=== PATIENT | male | born 1970 | race Caucasian/White ===

== ENCOUNTER 2021-12-04 12:31 | Outpatient (CLI) | payer OTHER, SELFPAY ==
[2021-12-04 13:39] LABS: Albumin* 4.6 g/dL (3.3-5.0); Chloride* 104 mmol/L (96-114); Sodium* 138 mmol/L (135-149)
[2021-12-04 13:40] LABS: Potassium* 4.5 mmol/L (3.6-5.1)
[2021-12-04 13:41] LABS: Cholesterol* 158 mg/dL (90-199)
[2021-12-04 13:42] LABS: Alanine Aminotransferase* 55 U/L (4-50); Alkaline Phosphatase* 81 U/L (40-150); Aspartate Amino Transferase* 49 U/L (12-35); Bilirubin Total* 0.8 mg/dL (0.1-1.5); Blood Urea Nitrogen* 25 mg/dL (7-30); Calcium* 9.1 mg/dL (8.4-10.6); Carbon Dioxide* 27 mmol/L (20-32); Creatinine* 1.1 mg/dL (0.5-1.5); Estimated Glomerular Filt Rate 81 ml/min; Glucose* 100 mg/dL (60-115); Total Protein* 6.9 g/dL (6.0-8.3); Triglycerides* 204 mg/dL (40-149)
[2021-12-04 13:43] LABS: HDL Cholesterol* 34 mg/dL (>=40); LDL Cholesterol Calculated 83 mg/dL (<100)
== END 2021-12-04 12:32 | disposition home or self-care (01) ==
PROVIDERS: PCP Family Medicine; Visit Provider Family Medicine
DX: Z00.00 Encounter for general adult medical examination without abnormal findings (principal); E03.9 Hypothyroidism, unspecified; E78.5 Hyperlipidemia, unspecified; F41.9 Anxiety disorder, unspecified
CPT/HCPCS: 80053; 80061; 84443

== ENCOUNTER 2021-12-07 07:49 | Outpatient (CLI) | payer OTHER, SELFPAY ==
[2021-12-08 22:49] LABS: Prostate Specific Antigen Free 0.2 ng/mL; Prostate Specific Antigen%Free 25 %; Prostate Specific AntigenTotal 0.8 ng/mL (0.0-4.0)
[2021-12-14 21:48] LABS: Sex Hormone Binding Globulin 13 nmol/L (19-76); Testosterone, Free LC-MS/MS 35.5 pg/mL (47.0-244.0); Testosterone, LC-MS/MS 140 ng/dL (300-890)
== END 2021-12-07 07:50 | disposition home or self-care (01) ==
PROVIDERS: PCP Family Medicine; Visit Provider Family Medicine
DX: N52.9 Male erectile dysfunction, unspecified (principal); R79.89 Other specified abnormal findings of blood chemistry; E78.5 Hyperlipidemia, unspecified; E03.9 Hypothyroidism, unspecified; F41.9 Anxiety disorder, unspecified; E66.01 Morbid (severe) obesity due to excess calories
CPT/HCPCS: 84153; 84154; 84270; 84402; 84403

== ENCOUNTER 2022-12-07 07:50 | Outpatient (CLI) | payer OTHER, SELFPAY | END 2022-12-07 07:51 | disposition home or self-care (01) | PROVIDERS: PCP Family Medicine; Referring Provider Family Medicine; Visit Provider Family Medicine | DX: E03.9 Hypothyroidism, unspecified (principal); R79.89 Other specified abnormal findings of blood chemistry; E78.5 Hyperlipidemia, unspecified | CPT/HCPCS: 80053; 80061; 84403; 84443 ==

== ENCOUNTER 2022-12-24 11:20 | Outpatient (CLI) | payer OTHER, SELFPAY | END 2022-12-24 11:21 | disposition home or self-care (01) | LOC: FRMREF 11:21 | PROVIDERS: PCP Family Medicine; Visit Provider Family Medicine | DX: Z00.00 Encounter for general adult medical examination without abnormal findings (principal); R79.89 Other specified abnormal findings of blood chemistry; Z12.5 Encounter for screening for malignant neoplasm of prostate | CPT/HCPCS: 84153 ==

== ENCOUNTER 2023-01-25 07:10 | Outpatient (CLI) | payer OTHER, SELFPAY ==
--- NOTE | 2023-01-25 08:25 | W.ANESCHARGE ---
Anesthesia Charges Start Date/Time Anesthesia Start Date: 01/25/23 Anesthesia Start Time: 08:01 Stop Date/Time Anesthesia Stop Date: 01/25/23 Anesthesia Stop Time: 08:25
--- NOTE | 2023-01-25 13:03 | W.ANESCHARGE ---
Anesthesia Charges Start Date/Time Anesthesia Start Date: 01/25/23 Anesthesia Start Time: 08:01 Stop Date/Time Anesthesia Stop Date: 01/25/23 Anesthesia Stop Time: 08:25
== END 2023-01-25 07:11 | disposition home or self-care (01) ==
LOC: OP CLINIC 07:11
PROVIDERS: PCP Family Medicine; Visit Provider Internal Medicine
DX: Z86.010 Personal history of colon polyps (principal); K57.30 Diverticulosis of large intestine without perforation or abscess without bleeding
CPT/HCPCS: 00811; 00812; 45378; J2704

== ENCOUNTER 2023-03-14 08:44 | Outpatient (CLI) | payer OTHER, SELFPAY | END 2023-03-14 08:45 | disposition home or self-care (01) | LOC: NFLDREF 03-20 20:09 | PROVIDERS: PCP Family Medicine; Referring Provider Family Medicine; Visit Provider Family Medicine | DX: R79.89 Other specified abnormal findings of blood chemistry (principal); Z12.5 Encounter for screening for malignant neoplasm of prostate | CPT/HCPCS: 83002; 84270; 84402; 84403; G0103 ==

== ENCOUNTER 2023-09-20 08:20 | Outpatient (CLI) | payer OTHER, SELFPAY ==
--- OUTSIDE RECORDS SUMMARY | 2023-09-20 08:25 | XMS_ITS | Continuity of Care Document ---
Author Name [facility] Organization [facility] Care Team Providers Care Help Desk Operator Name Role Phone [facility] Unavailable Unavailable Encounters Combined list of: 1) Encounters from [facility] Affairs facilities going back up to thelast 18 months. 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 Location Location Details Encounter Type Encounter Number Reason For Visit Attending Provider ADM Date DC Date Status Disposition Source [place] [facility] Outpatient Encounter [id number] GLENNA PENALOZA 09/13 DHEERAJ PAGE [facility] Social History Combined list of available smoking, tobacco, and other social history from Department of Defense and Veterans Affairs facilities. Social History Type Response Date Comment Sourc e This section is an empty social history section. [facility]
--- OUTSIDE RECORDS SUMMARY | 2023-09-20 08:25 | XMS_ITS | Clinical Summary ---
Author Organization [facility] Address [place], [place] [address] Care Team Providers Care Therapeutic Sales Specialist Name Role Phone Unavailable Primary Care Provider Unavailabl e Allergies No known active allergies Medications Medication Sig Dispensed Refills Start Date End Date Status levothyroxine (SYNTHROID) 88 mcg tablet Take 88 mcg by mouth once daily. 08/08/2020 Active rosuvastatin (CRESTOR) 5 mg tablet TAKE 1 TABLET BY MOUTH DIRECTED 07/04/2020 Active ezetimibe (ZETIA) 10 mg tablet Take 10 mg by mouth at bedtime. 07/14/2020 Active B-D 3cc Luer-Young Syr 22Gx1 3 mL 22 gauge x 1 syrg USE DIRECTED 07/19/2020 Acti ve testosterone cypionate (DEPO-TESTOSTERONE) 200 mg/mL injection INJECT 1 ML (200 MG) INTO THE MUSCLE EVERY 2 WEEKS 09/12/2020 Active hydrOXYzine pamoate (VISTARIL) 25 mg capsuleIndications: Anxiety Take 1-2 Capsules (25-50 mg) by mouth 3 times daily if needed. 100 Capsule 09/21/2020 Active LORazepam (ATIVAN) 0.5 mg tabIndications:Anxi ety Take 1 Tablet (0.5 mg) by mouth every 6 hours if needed for Anxiety. 10 Tablet 09/21/2020 Active Active Problems No known active problems Social History Tobacco Use Types Packs/Day Years Used Date Smoking Tobacco: Never Smokeless Tobacco: Never Comments:chewing tobacco Alcohol Use Standard Drinks/Week Comments Yes 0 (1 standard drink = 0.6 oz pur e alcohol) weekends Sex and Gender Information Value Date Recorded Sex Assigned at Not on file Gender Identity Not on file Sexual Orientation Not on file Obstetrics History Last Filed Vital Signs Vital Sign Reading Time Taken Comments Blood Pressure 147/93 09/21/2020 8:20 PM CDT Pulse 90 09/21/2020 8:20 PM CDT Temperature 36.7 ??C (98 ??F) 09/21/2020 8:20 PM CDT Respiratory Rate 16 09/21/2020 8:20 PM CDT Oxygen Saturation 98% 09/21/2020 8:20 PM CDT Inhaled Oxygen Concentration - - Weight 86.2 kg (190 lb) 09/21/2020 8:20 PM CDT Height 177.8 cm (5' 10) 09/21/2020 8:20 PM CDT Body Mass Index 27.26 09/21/2020 8:20 PM CDT Plan of Treatment Health Maintenance Due Date Last Done Comments Tdap 1980 Depression screening for age 12+ 1981 HIV for age 15-65 1984 Hepatitis C screening for ag e 18-79 11/13/1987 Tetanus booster 1989 Colonoscopy through age 75 2014 Lipids for age 45-75 2014 Zoster (shingles) series for age 50+ (1 of 2) 11/13/2019 BMI (ht and wt on same day) for age 18+ 09/21/2021 09/21/2020 COVID-19 vaccine series (2022- season) 2022 06/17/2020, 05/20/2020 Influenza for age 50-64 11/10/2023 Pneumococcal series for age 6-64 Aged Out No longer eligible b ased on patient's age to complete this topic
== END 2023-09-20 08:21 | disposition home or self-care (01) ==
PROVIDERS: PCP Family Medicine; Visit Provider Family Medicine
DX: R79.89 Other specified abnormal findings of blood chemistry (principal); E03.9 Hypothyroidism, unspecified; E78.5 Hyperlipidemia, unspecified; F41.9 Anxiety disorder, unspecified
CPT/HCPCS: 80061; 80076; 84270; 84402; 84403; 84443

== ENCOUNTER 2024-04-06 08:07 | Outpatient (CLI) | payer OTHER, SELFPAY | END 2024-04-06 08:08 | disposition home or self-care (01) | LOC: NFLDREF 04-13 01:13 | PROVIDERS: PCP Family Medicine; Referring Provider Family Medicine; Visit Provider Family Medicine | DX: R79.89 Other specified abnormal findings of blood chemistry (principal); E78.5 Hyperlipidemia, unspecified; Z12.5 Encounter for screening for malignant neoplasm of prostate | CPT/HCPCS: 80061; 80076; 84270; 84402; 84403; G0103 ==

== ENCOUNTER 2024-10-05 08:24 | Outpatient (CLI) | payer OTHER, SELFPAY | END 2024-10-05 08:25 | disposition home or self-care (01) | LOC: NFLDREF 10-06 15:20 | PROVIDERS: PCP Family Medicine; Referring Provider Family Medicine; Visit Provider Family Medicine | DX: E03.9 Hypothyroidism, unspecified (principal); R79.89 Other specified abnormal findings of blood chemistry; R53.83 Other fatigue | CPT/HCPCS: 80076; 84270; 84402; 84403; 84443 ==

== ENCOUNTER 2025-02-01 09:28 | Outpatient (CLI) | payer OTHER, SELFPAY ==
--- NOTE | 2025-02-01 10:00 | CRLHL7_ITS ---
For Patients: As a result of the Century Cures Act, medical imaging exams and procedure reports are released immediately into your electronic medical record. You may view this report before your referring provider. If you have questions, please contact your health care provider. INDICATION: Lung cancer screening. Smoking history. TECHNIQUE: CT chest low dose without contrast. COMPARISON: None. FINDINGS: Pulmonary nodules: Mixed density solid and partially calcified left upper lobe nodule measuring 1.5 x 1.6 cm. The calcifications appear laminated/concentric, which is a marker of benignity. Left lower lobe subpleural solid nodule measuring 0.7 cm (3/99) Lungs and pleural spaces: Unremarkable. Heart and vasculature: Heart size is normal. Thoracic aorta and pulmonary artery are normal in caliber. Lymph nodes and mediastinum: No mediastinal, hilar, or axillary adenopathy. Chest wall: Unremarkable. Upper abdomen: Normal. Bones: Subcentimeter sclerotic focus within the right glenoid, likely a bone island IMPRESSION: Left lower lobe solid nodule measuring 0.7 cm is probably benign. Mixed density solid and partially calcified left upper lobe nodule measuring up to 1.6 cm is favored benign. Lung-RADS Category 3: Probably Benign. Recommend repeat LDCT in 6 months. Please note that all CT scans at this facility use dose modulation, iterative reconstruction, and/or weight-based dosing when appropriate to reduce radiation dose to as low as reasonably achievable. Dictated by Bre Fraga MD @ 02/01/2025 1:40:28 PM (Electronically Signed)
== END 2025-02-01 09:29 | disposition home or self-care (01) ==
LOC: CT 09:29
PROVIDERS: PCP Family Medicine; Visit Provider Family Medicine
DX: Z12.2 Encounter for screening for malignant neoplasm of respiratory organs (principal); R91.8 Other nonspecific abnormal finding of lung field; M85.80 Other specified disorders of bone density and structure, unspecified site
CPT/HCPCS: 71271